=== PATIENT | male | born 1955 | race Caucasian/White ===

== ENCOUNTER 2020-09-08 16:20 | Outpatient (CLI) | payer OTHER, SELFPAY ==
[2020-09-08 17:28] LABS: SARS-CoV-2 Ag Negative (Negative)
[2020-09-10 17:28] LABS: SARS-CoV-2 RNA PCR Negative
== END 2020-09-08 16:21 | disposition home or self-care (01) ==
LOC: CHSLAB 16:43
PROVIDERS: PCP Internal Medicine; Visit Provider Internal Medicine
DX: Z20.822 Contact with and (suspected) exposure to COVID-19 (principal)
CPT/HCPCS: 87426; C9803; U0003; U0005

== ENCOUNTER 2021-07-22 13:14 | Outpatient (CLI) | payer OTHER, SELFPAY ==
--- NOTE | ~2021-07-22 | XR_ITS ---
EXAMINATION: XR sacrum coccyx min 2V DATE: 07/22/2021 14:12 INDICATION: Sacrococcygeal pain. TECHNIQUE: 3 views of the sacrum and coccyx were obtained. COMPARISON: None. FINDINGS: Bone alignment is normal. No fracture. There is severe lumbar spondylosis. There is mild os teoarthritis of the sacroiliac joints. IMPRESSION: 1. Mild osteoarthritis of the sacroiliac joints. 2. Severe lumbar spondylosis. Reviewed, dictated and finalized at location A. RANCE COUNSEL
--- NOTE | ~2021-07-22 | XR_ITS ---
EXAMINATION: XR lumbar spine 2-3V DATE: 07/22/2021 14:10 INDICATION: Low back pain. TECHNIQUE: 3 views of lumbar spine were obtained. COMPARISON: None. FINDINGS: There is 9 degrees dextrocurvature of thoracolumbar spine. Vertebral body heights are olga l. There is mildly decreased disc height at L1-L2, moderately decreased disc height at L2-L3, and sev erely decreased disc height from L3-L4 through L5-S1 with endplate remodeling. There is multilevel fa cet joint osteoarthritis. IMPRESSION: 1. Severe lumbar spondylosis. Reviewed, dictated and finalized at location A. ORK CONTROL OPERATORS SUPERVISOR
--- NOTE | ~2021-07-22 | XR_ITS ---
EXAMINATION: XR hand LT min 3V, XR hand RT min 3V, XR wrist RT min 3V, XR wrist LT min 3V DATE: 07/22/2021 14: INDICATION: Radial side predominant bilateral hand and wrist pain. Polyarthritis. TECHNIQUE: 1. Posteroanterior, ulnar deviation, oblique, and lateral views of the left wrist were obtained. 2. Dorsal palmar, oblique and lateral views of the left hand were obtained. 3. Posteroanterior, ulnar deviation, oblique, and lateral views of the right wrist were obtained. 4. Dorsal palmar, oblique and lateral views of the right hand were obtained. COMPARISON: None. FINDINGS: Normal alignment of the bilateral hands and wrists. No fracture identified. Relatively symmetric darryl yarticular osteoarthritis at the bilateral hands and wrists, moderate severity at the right distal ra dioulnar joint and at several of the bilateral distal interphalangeal joints and mild at the left dis nicky radioulnar joint and at the bilateral triscaphe, first carpometacarpal and multiple metacarpophal angeal and remaining interphalangeal joints. No erosions to suggest an inflammatory arthritis. Mild p eriarticular soft tissue swelling at multiple interphalangeal joints. IMPRESSION: 1. Relatively symmetric in typical distribution of mild to moderate polyarticular osteoarthritis at t he bilateral hands and wrists. Reviewed, dictated and finalized at location A. GE BUFFER IMPRESSION: 1. Relatively symmetric in typical distribution of mild to moderate polyarticul ar osteoarthritis at the bilateral hands and wrists. IMPRESSION: 1. Relatively symmetric in typical distribution of mild to moderate polyarticul ar osteoarthritis at the bilateral hands and wrists. IMPRESSION: 1. Relatively symmetric in typical distribution of mild to moderate polyarticul ar osteoarthritis at the bilateral hands and wrists.
[2021-07-22 13:28] LABS: Hematocrit 48.4 % (37.0-46.0); Hemoglobin 15.9 g/dL (12.4-15.3); Mean Corpuscular HGB Conc 32.9 g/dL (32.0-36.0); Mean Corpuscular Hemoglobin 31.1 pg (27.0-31.0); Mean Corpuscular Volume 94.5 fL (78.0-102.0); Mean Platelet Volume 10.1 fl (8.7-11.0); Platelet Count Result 194 K/mm3 (150-420); Red Blood Count 5.12 M/mm3 (4.70-6.10); Red Cell Distribution Width 11.9 % (11.6-14.4); White Blood Count 3.3 K/mm3 (4.8-10.8)
[2021-07-22 14:04] LABS: Band Neutrophils Percent 0 % (0-6); Eosinophils Absolute Manual 0.03 K/mm3 (0.02-0.5); Eosinophils Percent Manual 1 % (1-6); Lymphocytes Absolute Manual 1.15 K/mm3 (1.1-4.5); Lymphocytes Percent Manual 35 % (18-44); Monocytes Absolute Manual 0.39 K/mm3 (0.1-0.90); Monocytes Percent Manual 12 % (3-9); Neutrophils Absolute Manual 1.71 K/mm3 (1.3-6.7); Neutrophils Percent Manual 52 % (46-73); Platelet Estimate Adequate (Adequate); Total Cells Counted 100
[2021-07-22 14:06] LABS: Alanine Aminotransferase 32 U/L (16-63); Albumin Level 3.6 g/dL (3.4-5.0); Alkaline Phosphatase 76 U/L (46-116); Anion Gap 8 mmol/L (8-16); Aspartate Amino Transferase 19 U/L (15-37); Bilirubin,Total 0.7 mg/dL (0.00-1.00); Blood Urea Nitrogen 19 mg/dL (7-18); Calcium 9.1 mg/dL (8.5-10.1); Carbon Dioxide 30 mmol/L (21-32); Chloride 103 mmol/L (98-108); Cholesterol 253 mg/dL (0-200); Estimated Glomerular Filt Rate > 60; Glucose 92 mg/dL (70-99); HDL Direct 115 mg/dL (40-60); LDL Cholesterol Calculated 121 mg/dL (<130); Osmolality Calculated 294 mOsm/kg (285-295); Potassium 4.7 mmol/L (3.5-5.1); Sodium 141 mmol/L (136-145); Thyroid Stimulating Hormone 1.29 uIU/mL (0.36-3.74); Total Protein 7.2 g/dL (6.4-8.2); Triglycerides 85 mg/dL (0-150); Uric Acid 4.6 mg/dL (3.5-7.2)
[2021-07-22 14:07] LABS: CRP < 0.2 mg/dL (0.0-0.9)
[2021-07-22 14:16] LABS: Add Urine Microscopic? NO; Appearance Urine Clear (Clear); Bilirubin Urine Negative (Negative); Blood Urine Negative (Negative); Color Urine Light Yellow (Yellow); Glucose Urine UA Negative (Negative); Ketones Urine Negative (Negative); Leukocyte Esterase Ur Negative (Negative); Nitrate Urine Negative (Negative); Protein Urine Negative (Negative); Specific Grav Ur 1.025 (1.010-1.020); Urobilinogen Urine 0.2 mg/dL (0.2-1.0)
== END 2021-07-22 13:15 | disposition home or self-care (01) ==
LOC: CHSLAB 13:16
PROVIDERS: PCP Internal Medicine; Visit Provider Internal Medicine
DX: I42.9 Cardiomyopathy, unspecified (principal); M54.50 Low back pain, unspecified; M13.0 Polyarthritis, unspecified; R56.9 Unspecified convulsions; Z00.00 Encounter for general adult medical examination without abnormal findings
CPT/HCPCS: 36415; 72100; 72220; 73110; 73130; 80053; 80061; 81003; 84443; 84550; 85025; 86140

== ENCOUNTER 2022-01-13 09:59 | Outpatient (CLI) | payer OTHER, SELFPAY ==
--- NOTE | ~2022-01-13 | US_ITS ---
US abdomen complete EXAMINATION: US Abdomen Complete INDICATION: Leukopenia. PROCEDURE: Realtime High Resolution abdomen ultrasound. COMPARISON: No prior studies for comparison FINDINGS: Gallbladder within normal limits. No gallstones, pericholecystic fluid, gallbladder wall t hickening or biliary dilatation. Common bile duct measures 4.5 mm. Liver echotexture is normal. There are multiple cysts of the liver, largest measuring 2.9 x 1.6 x 1.8 cm. Liver appears to be enlarged.. Pancreatic duct is mildly prominent. No focal pancreatic masses a re seen. Pancreatic tail is obscured by bowel gas. Spleen is unremarkeable. Renal echotexture is wit hin normal limits bilaterally without hydronephrosis, contour deforming mass or renal stone. There is a right renal cyst measuring 3.1 cm. Right kidney measures 11.7 cm. Left kidney measures 11.5 cm. Visualized aspects of the aorta and IVC are within normal limits. Portal vein is patent. No sonograph ic Rosa's sign indicated by the technologist. IMPRESSION: 1: Liver and right renal cysts. 2: Mild prominence of the pancreatic duct measuring 1.3 mm. Reviewed, dictated and finalized at location A.
== END 2022-01-13 10:00 | disposition home or self-care (01) ==
PROVIDERS: PCP Internal Medicine; Visit Provider Internal Medicine Hematology & Oncology
DX: D72.819 Decreased white blood cell count, unspecified (principal); N28.1 Cyst of kidney, acquired
CPT/HCPCS: 76700

== ENCOUNTER 2022-03-01 08:04 | Outpatient (RCR) | payer OTHER, SELFPAY ==
--- NOTE | 2022-03-01 09:00 | PTOPEVAL ---
Thank you for referring Alexey Russell to [facility].? The patient is scheduled to be seen for therapy? ____x/week for ___ weeks. Please review, sign, date and return this plan of care LINNEA. I agree with and certify that the following plan of care is medically necessary. Referring Physician Date Admitting Provider: Attending Provider: Savage Fonseca MD Referring Provider: *PT Outpatient Evaluation Start: 03/01/22 08:07 Freq: Status: Active Protocol: Document 03/01/22 08:08 STEFFI (Rec: 03/01/22 08:59 STEFFI [email or web address]) Therapy Assessment Status Assessment Status Assessment Status Evaluation Evaluation Information Problem Diagnosis R shoulder pain Onset 02/19/22 Additional Evaluation Detail quick dash = 43% functionally declined Subjective Information patient reports he is having Query Text:As Reported By Patient/ increased pain in the R Family shoulder again. he reports he recently had a cortisone injection about 2 weeks ago. he reports has increased pain in the R shoulder with working with things away from his body. he reports he was unable to reach across his body to reach the back of his opposite shoulder. he reports he also shi increased pain with trying to lift or hold objects out to his side. he reports it feels like a arm but it doesnt go away. he reports tingling in the arm at times when he falls asleep, but will go away with reaching his arm out to his side with his palm facing upwards. he reports he has had no new imaging. patient reports he is much better since his injection. Prior Level of Function Comments Additional Prior Level of Function patient reports he has been Comments getting progressively worse for the past 2 months. he reports no change or increase in activity. he reports prior to 2 months ago he was more easily able to use his arms to work in the yard. Pain Assessment Timing of Pain Assessment Timing of Pain Assess
--- NOTE | 2022-03-09 10:17 | PCPTNOTE ---
03/09/22 - Documented accidently under Marija Marcial. Treatment and documentation performed by Meghan Dimas PTA
--- NOTE | 2022-04-02 08:55 | PTOPEVAL ---
Thank you for referring Alexey Russell to [facility].? The patient is scheduled to be seen for therapy? ____x/week for ___ weeks. Please review, sign, date and return this plan of care LINNEA. I agree with and certify that the following plan of care is medically necessary. Referring Physician Date Admitting Provider: Attending Provider: Savage Fonseca MD Referring Provider: *PT Outpatient Evaluation Start: 03/01/22 08:07 Freq: Status: Active Protocol: Document 03/25/22 08:30 [facility] (Rec: 04/01/22 20:32 J filej) Therapy Assessment Status Assessment Status Assessment Status Re-evaluation Evaluation Information Problem Diagnosis R shoulder pain Onset 02/19/22 Additional Evaluation Detail quick dash = 40% functionally declined Subjective Information patient reports he continues Query Text:As Reported By Patient/ to have pain and weakness in Family the R shoulder. he reports he knows there is a tear in there and has been for years, but he was hoping to get some relief of pain and improved use of the arm like he has with therapy in the past. patient reports the hadn/arm contnues to go numb when he sleeps. Pain Assessment Timing of Pain Assessment Timing of Pain Assessment Assessment Pain Scale Pain Scale Used Numeric (1 - 10) Self Report Pain Assessment Right Shoulder(s) Reported Pain Level 6 Pain Score Pain Score 6: Self Report Interventions Used Interventions Used By Clinicians Activity or ADL's,Electrical Stimulation,Exercise,Heat, Manual Therapy Techniques Upper Extremity Range of Motion General Upper Extremity Range of Motion Gross Upper Extremity Range of Motion 155 degrees arom bilateral Comments shoulder flexion -functional bilateral shoulder ER reach to the lower cervical spine/collar midline -functional bilateral shoulder IR reach tot he uppper lumbar spine midline Upper Extremity Muscle Strength Testing General Upper Extremity Strength Gross Upper Extremity Strength Comments 4/5 R shoulder flex 4+/5 R shoulder ER 5/5 R shoulder IR -pain in the R shoulder with flexion and abduction mm
--- NOTE | 2022-04-15 10:08 | PTOPEVAL ---
Thank you for referring Alexey Russell to [facility].? The patient is scheduled to be seen for therapy? ____x/week for ___ weeks. Please review, sign, date and return this plan of care LINNEA. I agree with and certify that the following plan of care is medically necessary. Referring Physician Date Admitting Provider: Attending Provider: Savage Fonseca MD Referring Provider: *PT Outpatient Evaluation Start: 03/01/22 08:07 Freq: Status: Active Protocol: Document 04/15/22 09:30 [facility] (Rec: 04/15/22 10:08 [facility] [email or web address]) Therapy Assessment Status Assessment Status Assessment Status Discharge Evaluation Information Problem Diagnosis R shoulder pain Onset 02/19/22 Additional Evaluation Detail quick dash = 34% functionally declined Subjective Information patient reports since his Query Text:As Reported By Patient/ initial evaluation and last re Family -evaluation he has improved a lot. however, he reports he still has increased pain with pronlonged activities and increased lifting activities. he reports he will do well for a few days and then have a flare up from being too active at home. he reports the dry needling did help a lot for him. Pain Assessment Timing of Pain Assessment Timing of Pain Assessment Assessment Pain Scale Pain Scale Used Numeric (1 - 10) Self Report Pain Assessment Right Shoulder(s) Reported Pain Level 1 Greatest Pain Intensity 3 Pain Score Pain Score 1: Self Report Interventions Used Interventions Used By Clinicians Activity or ADL's,Dry Needling ,Education,Electrical Stimulation,Exercise,Heat, Manual Therapy Techniques Upper Extremity Range of Motion General Upper Extremity Range of Motion Gross Upper Extremity Range of Motion 155 degrees arom bilateral Comments shoulder flexion -functional bilateral shoulder ER reach to the lower cervical spine/collar midline -functional bilateral shoulder IR reach tot he uppper lumbar spine midline Upper Extremity Muscle Strength Testing General Upper Extremity Strength Gross Upper Extremity Strength Comments 4/5 R shoulder flex/abd 4+/5 R shoulder ER
== END 2022-04-15 14:15 | disposition home or self-care (01) ==
LOC: CHSPT 08:04
PROVIDERS: PCP Internal Medicine; Visit Provider Internal Medicine
DX: M25.511 Pain in right shoulder (principal)
CPT/HCPCS: 97014; 97110; 97140; 97161; G0283

== ENCOUNTER 2022-04-05 19:57 | Outpatient (CLI) | payer OTHER, SELFPAY ==
--- NOTE | 2022-04-21 07:37 | WPDSLEEPSTUD ---
Sleep Study Date of Study: 04/05/22 Ordering Provider: Mikaela Barakat MD Interpreting Physician: Mikaela Barakat MD Sleep Study Type: Split Polysomnogram Height: 1.78 m Weight: 68.492 kg Body Mass Index: 21.7 Neck Circumference (inches): 19 [place]: 11 Reason for Sleep Study Hypersomnia Sleep History Alexey Russell is a 66-year-old man with complaints of excessive daytime sleepiness. He has a history of sleep apnea and has used CPAP in the past. He does not awaken from sleep feeling short of breath were with heartburn symptoms, belching or coughing he occasionally snores but never loudly enough that others complain about it. He rarely has trouble sleeping with a cold. He rarely wakes up gasping for breath at night. He does not sweat excessively at night or notice his heart pounding or beating irregularly. He does not fall asleep during the day, does not fall asleep involuntarily or while driving. He does not have loss of muscle tone with strong emotion. He does not have daytime difficulties due to excessive sleepiness. He does not feel paralyzed on waking or falling asleep. He does not have vivid dreamlike scenes upon awakening or falling asleep. He does not feel afraid to go to sleep. He occasionally has nightmares, occasionally remembers his dreams. He occasionally has racing thoughts and feelings of sadness or depression. He does not have anxiety. He does not have muscular tension, does not notice part of his body jerking and does not kick at night. He does not have crawling or aching feelings in his legs. He does not have any kind of leg pain at night. He does not have morning jaw pain. He occasionally grinds his teeth during sleep. He is not bothered by pain during the day or awakened by pain at night. He rarely wakes up feeling stiff the morning with sore achy muscles or pain in the neck and spine. He has headaches and fatigue. Normal bedtime is 10 pm, falling asleep quickly, waking twice at night to go the bathroom. He is able to return to sleep quickly. He wakes up at 9:00 a.m.. Weekend schedule is different, goes to bed at 10:30 a.m. but wakes around 11:00 a.m.. He is getting between 7-10 hours of sleep at night. He does not generally take naps. Sometimes a short nap is refreshing. Habits: Tobacco: former smoker 2 packs a day,stopped 2003. Caffeine 2 cups a day. [facility] Past Medical History Medical History (Updated 04/21/22 @ 09:10 by Mikaela Barakat MD) Hyperlipidemia Hypertension Obstructive sleep apnea Family History Family History (Updated 03/26/22 @ 14:36 by Mikaela Barakat MD) Mother Diabetes mellitus Family history of cardiovascular disease Family history of malignant neoplasm Hypertension Father Carcinoma of colon Family history of malignant neoplasm Sibling Family history of malignant neoplasm Social History Social History (Updated 03/26/22 @ 14:37 by Mikaela Barakat MD) Smoking packs per day: 1.5 Smoking cigarettes per day: 30.0 Years smoked: 24 Smoking pack-years: 36.00 Smoking status: Former smoker Smoking end date: 08/22/03 Alcohol intake: current Drinks per week: 7 Alcohol use details: One beer or a Gabby daily 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 [employer] Medications Home Medications Medication Instructions Recorded Confirmed Type celecoxib 200 mg capsule (Celebrex) 200 mg PO DAILY 03/04/22 History levetiracetam 250 mg tablet 250 mg PO Q12H 03/04/22 History losartan 25 mg tablet 25 mg PO DAILY 03/04/22 History rosuvastatin 5 mg tablet 5 mg PO DAILY 03/04/22 History Sleep Procedure This test was performed using the [employer] multiple channel system including EOG, EEG, submental EMG, EKG, nasal and oral airflow using thermistors and nasal pressure sensors, chest and abdominal belts for body position data, and pulse oximetry. Video monitoring was also performed. The study was scored using
[2022-04-21 09:33] VITALS: BMI 21.7
== END 2022-04-06 07:00 | disposition home or self-care (01) ==
PROVIDERS: PCP Internal Medicine; Visit Provider Internal Medicine Critical Care Medicine
DX: G47.19 Other hypersomnia (principal)
CPT/HCPCS: 95811

== ENCOUNTER 2022-07-31 08:49 | Outpatient (CLI) | payer OTHER, SELFPAY ==
--- NOTE | ~2022-07-31 | MR_ITS ---
EXAMINATION: MR shoulder LT wo con DATE: 07/31/2022 10:03 INDICATION: PAIN . TECHNIQUE: Magnetic resonance imaging (MRI) of the left shoulder was performed without intravenous co ntrast. Sequences included axial PD-weighted FS FSE, coronal oblique PD-weighted FS FSE and T2-weight ed FS FSE, and sagittal oblique T2-weighted FS FSE and T1-weighted FSE. COMPARISON: Left shoulder x-rays 05/31/2019. FINDINGS: Coracoacromial arch: Mild anterolateral downsloping of the type II acromion. Moderate AC joint hypertrophy. Significant nelson bcoracoid narrowing. Rotator cuff: Full-thickness tear of the distal supraspinatus tendon. Focal abnormal signal at the musculotendinous junction of the infraspinatus. Complete tear of the subscapularis with retraction. The teres minor i s intact. Biceps tendon and glenoid labrum: Long head of biceps tendon is mildly subluxed and thinned but intact. Degenerative signal change in t he diminutive appearing glenoid labrum Fluid: Mild subacromial subdeltoid fluid. Moderate glenohumeral joint fluid. Bones/cartilage: Glenohumeral joint narrowing. No suspicious marrow signal. IMPRESSION: 1. Full-thickness tears of the supraspinatus and subscapularis muscles. 2. Intrasubstance type tear of the infraspinatus muscle. 3. Severe subcoracoid narrowing. 4. Glenohumeral osteoarthritis. Reviewed, dictated and finalized at location K. E FORMER
== END 2022-07-31 08:50 | disposition home or self-care (01) ==
LOC: CHSIMG 08:50
PROVIDERS: PCP Internal Medicine; Visit Provider Internal Medicine
DX: M25.512 Pain in left shoulder (principal)
CPT/HCPCS: 73221

== ENCOUNTER 2022-09-13 11:13 | Outpatient (CLI) | payer OTHER, SELFPAY ==
--- NOTE | 2022-09-13 11:39 | ECG_ITS ---
Measurements Intervals [place] Rate: 59 P: -24 SC: 176 QRS: 42 QRSD: 92 T: 47 QT: 381 QTc: 379 Interpretive Statements SINUS BRADYCARDIA VOLTAGE CRITERIA FOR LVH MINIMAL Q WAVES- LATEARL LEADS BASELINE ARTIFACT- II, III BORDERLINE ECG NO PREVIOUS ECG AVAILABLE FOR COMPARISON Electronically Signed On 09-13-2022 11:50:52 MITER CUTTER by Kenan Carvalho D.O.
[2022-09-13 12:22] LABS: Anion Gap 9 mmol/L (8-16); Blood Urea Nitrogen 18 mg/dL (7-18); Calcium 8.7 mg/dL (8.5-10.1); Carbon Dioxide 27 mmol/L (21-32); Chloride 102 mmol/L (98-108); Estimated Glomerular Filt Rate > 60; Glucose 95 mg/dL (70-99); Osmolality Calculated 287 mOsm/kg (285-295); Potassium 4.4 mmol/L (3.5-5.1); Sodium 138 mmol/L (136-145)
== END 2022-09-13 11:14 | disposition home or self-care (01) ==
LOC: CHSLAB 11:18
PROVIDERS: PCP Internal Medicine
DX: Z01.818 Encounter for other preprocedural examination (principal)
CPT/HCPCS: 36415; 80048; 93005

== ENCOUNTER 2022-12-17 16:49 | Outpatient (CLI) | payer OTHER, SELFPAY ==
[2022-12-17 17:03] LABS: Basophils Absolute Auto 0.06 K/mm3 (0.00-0.10); Basophils Percent Auto 1.3 % (0.0-1.0); Eosinophils Percent Auto 2.2 % (1.0-6.0); Hematocrit 39.7 % (37.0-46.0); Hemoglobin 13.1 g/dL (12.4-15.3); Immature Granulocyte Absolute 0.01 K/mm3 (0.00-0.00); Immature Granulocyte Percent A 0.2 % (0.0-0.0); Lymphocytes Absolute Auto 1.53 K/mm3 (1.10-4.50); Lymphocytes Percent Auto 33.4 % (18.0-42.0); Mean Corpuscular Hemoglobin 30.3 pg (27.0-31.0); Mean Corpuscular Volume 91.7 fL (78.0-102.0); Mean Platelet Volume 10.1 fl (8.7-11.0); Monocytes Absolute Auto 0.41 K/mm3 (0.10-0.90); Neutrophils Absolute Auto 2.5 K/mm3 (1.7-7.2); Neutrophils Percent Auto 53.9 % (50.0-70.0); Platelet Count Result 202 K/mm3 (150-420); Red Blood Count 4.33 M/mm3 (4.70-6.10); Red Cell Distribution Width 12.8 % (11.6-14.4); White Blood Count 4.6 K/mm3 (4.8-10.8)
== END 2022-12-17 16:50 | disposition home or self-care (01) ==
LOC: CHSLAB 16:50
PROVIDERS: PCP Internal Medicine; Visit Provider Internal Medicine Hematology & Oncology
DX: D72.819 Decreased white blood cell count, unspecified (principal)
CPT/HCPCS: 36415; 85025

== ENCOUNTER 2023-02-09 07:08 | Outpatient (CLI) | payer OTHER, SELFPAY ==
[2023-02-09 07:21] LABS: Hematocrit 41.3 % (37.0-46.0); Hemoglobin 13.4 g/dL (12.4-15.3); Mean Corpuscular HGB Conc 32.4 g/dL (32.0-36.0); Mean Corpuscular Hemoglobin 29.8 pg (27.0-31.0); Mean Corpuscular Volume 91.8 fL (78.0-102.0); Mean Platelet Volume 10.5 fl (8.7-11.0); Platelet Count Result 200 K/mm3 (150-420); Red Cell Distribution Width 12.3 % (11.6-14.4); White Blood Count 3.1 K/mm3 (4.8-10.8)
[2023-02-09 08:29] LABS: Band Neutrophils Percent 0 % (0-6); Eosinophils Absolute Manual 0.12 K/mm3 (0.02-0.5); Eosinophils Percent Manual 4 % (1-6); Lymphocytes Absolute Manual 1.64 K/mm3 (1.1-4.5); Lymphocytes Percent Manual 53 % (18-44); Monocytes Absolute Manual 0.34 K/mm3 (0.1-0.90); Monocytes Percent Manual 11 % (3-9); Neutrophils Absolute Manual 0.99 K/mm3 (1.3-6.7); Neutrophils Percent Manual 32 % (46-73); Platelet Estimate Adequate (Adequate); Total Cells Counted 100
[2023-02-09 09:01] LABS: Alanine Aminotransferase 32 U/L (16-63); Albumin Level 3.5 g/dL (3.4-5.0); Alkaline Phosphatase 76 U/L (46-116); Anion Gap 6 mmol/L (8-16); Aspartate Amino Transferase 24 U/L (15-37); Bilirubin,Total 0.3 mg/dL (0.00-1.00); Blood Urea Nitrogen 21 mg/dL (7-18); Calcium 9.1 mg/dL (8.5-10.1); Carbon Dioxide 28 mmol/L (21-32); Chloride 104 mmol/L (98-108); Cholesterol 175 mg/dL (0-200); Estimated Glomerular Filt Rate > 60; Glucose 85 mg/dL (70-99); HDL Direct 74 mg/dL (40-60); LDL Cholesterol Calculated 76 mg/dL (<130); Osmolality Calculated 288 mOsm/kg (285-295); Potassium 4.6 mmol/L (3.5-5.1); Prostate Specific Antigen 1.7 ng/mL (< OR = 4.0); Sodium 138 mmol/L (136-145); Thyroid Stimulating Hormone 2.55 uIU/mL (0.36-3.74); Total Protein 6.7 g/dL (6.4-8.2); Triglycerides 123 mg/dL (0-150)
[2023-02-09 11:21] LABS: Appearance Urine Clear (Clear); Bilirubin Urine 1+ (Negative); Blood Urine Negative (Negative); Glucose Urine UA Negative (Negative); Ketones Urine Negative (Negative); Leukocyte Esterase Ur Negative (Negative); Nitrate Urine Negative (Negative); Protein Urine Trace (Negative); Specific Grav Ur 1.025 (1.010-1.020); pH Urine 6.5 (5.0-8.0)
[2023-02-09 11:30] LABS: Color Urine Dark Yellow (Yellow)
[2023-02-09 11:31] LABS: Add Urine Microscopic? YES; Bacteria Urine Trace /hpf; Mucus Urine Moderate /lpf; RBC Urine None seen /hpf (0-2); Squamous Epithelial Cell Urine Rare /hpf (Few); WBC Urine None seen /hpf (0-3)
== END 2023-02-09 07:09 | disposition home or self-care (01) ==
LOC: CHSLAB 07:10
PROVIDERS: PCP Internal Medicine; Visit Provider Internal Medicine
DX: I10 Essential (primary) hypertension (principal); E78.00 Pure hypercholesterolemia, unspecified; Z12.5 Encounter for screening for malignant neoplasm of prostate
CPT/HCPCS: 36415; 80053; 80061; 81001; 84153; 84443; 85025; G0103

== ENCOUNTER 2023-02-09 10:04 | Outpatient (RCR) | payer OTHER, SELFPAY ==
--- NOTE | 2023-02-16 11:16 | OPREHPOC ---
Outpatient Therapy Plan of Care This is a Multidisciplinary Plan of Care that may contain components documented by all disciplines (PT, OT, and ST.) PT Problem 1 PT Problem #1 Knowledge Deficit PT Goal 1 Goal Patient to demonstrate independence with HEP Target Visit 4 PT Problem 2 PT Problem #2 Impaired Strength PT Goal 1 Goal Patient to demonstrate 5/5 strength of L shoulder to return to lifting pots and pans at PLOF. Target Visit 4 PT Problem 3 PT Problem #3 Impaired Range of Motion PT Goal 1 Goal Patient to demonstrate 160 degrees of L shoulder flexion to return to house hold tasks at OF.
--- NOTE | 2023-02-16 11:16 | PTOPREEVAL ---
Assessment and note entered by Mikaela Hanna DPT Evaluation Information Assessment Status Re-evaluation Diagnosis L shoulder pain s/p RTC repair Onset 09/15/22 Subjective Information Patient reports his range of motion has improved and has improved his house hold activity. He reports he has been trying to good and lifting a pain and turning his hand in towards his body is difficult. He reports he RTMD in mid February. Reported Pain Level Pain Score 2: Self Report Assessment PT Clinical Summary Patient has been seen for 8 visits since his last re-assessment. He demonstrates improved L shoulder strength and ROM as well as reports improved house hold function. He reports continued difficulty with lifting pots and pans for cooking. He would benefit from continued skilled PT 1x weekly to improve strength and return to PLOF. Plan of Care Interventions Therapeutic Exercise,Patient/Caregiver Educati, Manual Therapy,Neuro Re-education,Therapeutic Activities,Hot Pack/Cold Pack,Self-Care/Home Management PT Services Indicated Yes Treatment Frequency and continue skilled PT 1x weekly for 4 more visits Duration These treatments will address the objective and functional deficits as defined above. The patient will be advanced safely and appropriately in order for the patient to progress towards his/her prior level of function. Additional exercises will be introduced and as well as a comprehensive home exercise program upon discharge, if needed, ?to ensure carryover of functional gains achieved in the clinic. This treatment plan has been reviewed and agreement upon by the patient.
--- NOTE | 2023-03-23 13:32 | OPREHPOC ---
Outpatient Therapy Plan of Care This is a Multidisciplinary Plan of Care that may contain components documented by all disciplines (PT, OT, and ST.) PT Problem 1 PT Problem #1 Knowledge Deficit PT Goal 1 Goal Patient to demonstrate independence with HEP Target Visit 4 Progress Met PT Problem 2 PT Problem #2 Impaired Strength PT Goal 1 Goal Patient to demonstrate 5/5 strength of L shoulder to return to lifting pots and pans at PLOF. Target Visit 4 Progress Partially Met PT Problem 3 PT Problem #3 Impaired Range of Motion PT Goal 1 Goal Patient to demonstrate 160 degrees of L shoulder flexion to return to house hold tasks at PLOF. Progress Partially Met Comment goal met with PROM, not met with AROM
--- NOTE | 2023-03-23 13:32 | PTOPDC ---
Assessment and note entered by JT File, PT Evaluation Information Assessment Status Re-evaluation Diagnosis L shoulder pain s/p RTC repair Onset 09/15/22 Subjective Information Patient reports no pain in the L shoulder at the beginning of today's session, but does state that it feels aggravated. Patient noted he visited the doctor about two weeks ago. The patient notes the doctor said he could return to work as long as he stopped activities once pain started to increase, however he is nervous about returning to work as he is unable to stop in the middle of performing actions at work. Patient reports that his pain levels have decreased since starting physical therapy, however he still notices weakness in the shoulder, especially with continued activity or lifting heavier objects. He also notes a significant increase in ROM and function from physical therapy. Reported Pain Level Pain Score 0: Self Report Assessment PT Clinical Summary Mr. Russell has attended 39 sessions of skilled PT to address L shoudler pain s/p RTC repair. He has demonstrated improved UE strength and ROM since intitial assessment, as well as functional use of the arm with household activities. According to Quick DASH assessment, he has 29.5% functional decline showing functional improvement since previous assessments. Patient reports a decrease in pain levels with getting dressed, reaching overhead, and sleeping. At this point in time, patient is to be discharged with independent HEP addressing remaining L shoulder strengthening and ROM limitations. Plan of Care PT Services Indicated Yes
== END 2023-03-23 15:24 | disposition home or self-care (01) ==
LOC: CHSPT 10:04
PROVIDERS: PCP Internal Medicine; Visit Provider Orthopaedic Surgery Hand Surgery
DX: M75.102 Unspecified rotator cuff tear or rupture of left shoulder, not specified as traumatic (principal); M25.512 Pain in left shoulder
CPT/HCPCS: 97110; 97140; 97150; 97530

== ENCOUNTER 2023-06-21 08:04 | Outpatient (CLI) | payer OTHER, SELFPAY ==
[2023-06-21 08:15] LABS: Hematocrit 41.8 % (37.0-46.0); Hemoglobin 14.1 g/dL (12.4-15.3); Mean Corpuscular HGB Conc 33.7 g/dL (32.0-36.0); Mean Corpuscular Hemoglobin 31.7 pg (27.0-31.0); Mean Corpuscular Volume 93.9 fL (78.0-102.0); Platelet Count Result 212 K/mm3 (150-420); Red Blood Count 4.45 M/mm3 (4.70-6.10); Red Cell Distribution Width 12.3 % (11.6-14.4); White Blood Count 3.3 K/mm3 (4.8-10.8)
[2023-06-21 08:26] LABS: Band Neutrophils Percent 0 % (0-6); Basophils Percent Manual 0 % (0-1); Eosinophils Absolute Manual 0.06 K/mm3 (0.02-0.5); Eosinophils Percent Manual 2 % (1-6); Lymphocytes Absolute Manual 1.35 K/mm3 (1.1-4.5); Lymphocytes Percent Manual 41 % (18-44); Metamyelocytes Percent 0 %; Monocytes Absolute Manual 0.46 K/mm3 (0.1-0.90); Monocytes Percent Manual 14 % (3-9); Myelocytes Percent 0 %; Neutrophils Absolute Manual 1.41 K/mm3 (1.3-6.7); Neutrophils Percent Manual 43 % (46-73); Platelet Estimate Adequate (Adequate); Total Cells Counted 100
[2023-06-21 09:18] LABS: Anion Gap 8 mmol/L (8-16); Blood Urea Nitrogen 15 mg/dL (7-18); Calcium 9.4 mg/dL (8.5-10.1); Carbon Dioxide 29 mmol/L (21-32); Chloride 102 mmol/L (98-108); Estimated Glomerular Filt Rate > 60; Folic Acid 6.6 ng/mL (8.6->20); Glucose 93 mg/dL (70-99); Osmolality Calculated 288 mOsm/kg (285-295); Potassium 4.6 mmol/L (3.5-5.1); Sodium 139 mmol/L (136-145); Vitamin B12 883 pg/mL (193-986)
== END 2023-06-21 08:05 | disposition home or self-care (01) ==
LOC: CHSLAB 08:06
PROVIDERS: PCP Internal Medicine; Visit Provider Internal Medicine Hematology & Oncology
DX: D72.819 Decreased white blood cell count, unspecified (principal)
CPT/HCPCS: 36415; 80048; 82607; 82746; 85025

== ENCOUNTER 2024-04-18 10:38 | Outpatient (CLI) | payer OTHER, SELFPAY ==
--- NOTE | ~2024-04-18 | XR_ITS ---
EXAMINATION: XR hand LT min 3V DATE: 04/18/2024 11:21 INDICATION: Left hand arthritis. TECHNIQUE: 3 views of left hand were obtained. COMPARISON: Left hand radiographs 07/22/2021 FINDINGS: Alignment is normal. No fracture. There is mild osteoarthritis of triscaphe joint and moder ate osteoarthritis of first carpometacarpal joint with loose body. There is mild osteoarthritis of [place] of the metacarpophalangeal joints and interphalangeal joints. There is severe osteoarthritis of fi rst interphalangeal joint and second and third distal interphalangeal joints and moderate osteoarthri tis of fourth distal interphalangeal joint. IMPRESSION: 1. Polyarticular osteoarthritis. Reviewed, dictated and finalized at location A.
[2024-04-18 11:01] LABS: Add Urine Microscopic? NO; Appearance Urine Clear (Clear); Bilirubin Urine Negative (Negative); Blood Urine Negative (Negative); Color Urine Yellow (Yellow); Glucose Urine UA Negative (Negative); Ketones Urine Negative (Negative); Leukocyte Esterase Ur Negative (Negative); Nitrate Urine Negative (Negative); Protein Urine Negative (Negative); Specific Grav Ur >= 1.030 (1.010-1.020); Urobilinogen Urine 0.2 mg/dL (0.2-1.0)
[2024-04-18 11:41] LABS: Cholesterol 201 mg/dL (0-200); HDL Direct 110 mg/dL (40-60); LDL Cholesterol Calculated 80 mg/dL (<130); Prostate Specific Antigen 1.8 ng/mL (< OR = 4.0); Thyroid Stimulating Hormone 1.34 uIU/mL (0.36-3.74); Triglycerides 54 mg/dL (0-150); Uric Acid 4.1 mg/dL (3.5-7.2)
[2024-04-18 11:46] LABS: CRP < 0.5 mg/dL (0.0-0.9)
[2024-04-20 07:15] LABS: Levetiracetam Keppra 10.3 mcg/mL (6.0-46.0)
== END 2024-04-18 10:39 | disposition home or self-care (01) ==
PROVIDERS: PCP Internal Medicine; Visit Provider Internal Medicine
DX: E78.5 Hyperlipidemia, unspecified (principal); G40.909 Epilepsy, unspecified, not intractable, without status epilepticus; M19.042 Primary osteoarthritis, left hand
CPT/HCPCS: 36415; 73130; 80061; 80177; 81003; 84153; 84443; 84550; 86140; G0103

== ENCOUNTER 2024-10-01 09:34 | Outpatient (CLI) | payer OTHER, SELFPAY ==
--- OUTSIDE RECORDS SUMMARY | 2024-10-01 10:06 | XMS_ITS | Clinical Summary ---
Author Organization [facility] Address [address] [place] [address] Care Team Providers Care Student Recruiter Name Role Phone Unavailable Primary Care Provider Unavailabl e Social History Tobacco Use Types Packs/Day Years Used Date Smoking Tobacco: Former Sex and Gender Information Value Date Recorded Sex Assigned at Not on file Legal Sex Male 9:33 PM CDT Gender Identity Not on file Sexual Orientation Not on file Last Filed Vital Signs Vital Sign Reading Time Taken Comments Blood Pressure 122/78 07/06/2016 10:30 AM CASE MANAGERS Pulse 74 07/06/2016 10:30 AM CASE MANAGERS Temperature - - Respiratory Rate 18 12/11/2012 11:04 AM CDT Oxygen Saturation - - Inhaled Oxygen Concentration - - Weight 68 kg (150 lb) 01/15/2016 11:19 AM CDT Height 177.8 cm (5' 10 ) 07/06/2016 10:30 AM CASE MANAGERS Body Mass Index 21.52 01/15/2016 11:19 AM CDT Plan of Treatment Health Maintenance Due Date Last Done Comments Colorectal Cancer Screening Colonoscopy (10 Years) 1953 Hepatitis C 1971 DTaP, Tdap and Td Vaccines ( 1 - Tdap) 1972 Zoster Vaccines (1 of 2) 2003 Pneumococcal Vaccine: 65+ Ye ars (1 of 1 - PCV) 2018 COVID-19 Vaccine ( - 2023-2 5 season) 2024 Influenza Adult (#1) 2024 RSV Immunization or 60+ Years (1 - 1-dose 75+ series) 2028 Meningococcal B Vaccine Aged Out No l onger eligible based on patient's age to complete this topic Meningococcal Vaccine Aged Out No john jaswinder eligible based on patient's age to complete this topic RSV Immunizations Under 20 Months Aged Out No longer eligible based on patient's age to complete this topic
--- OUTSIDE RECORDS SUMMARY | 2024-10-01 10:06 | XMS_ITS | Referral Summary ---
Author Organization [facility] [address] Address [address] [place] [address] Care Team Providers Care Foam Machine Operator Name Role Phone Savage Fonseca MD Primary Care Provider [phone] Allergies Active Allergy Reactions Criticality Noted Date Comments Phenytoin Itching Low 07/23/2014 Itching Medications levETIRAcetam (KEPPRA) 250 mg tablet Take 1 tablet (250 mg total) by mouth every 12 (twelve) hours 12/01/2021 Active losartan (COZAAR) 25 mg tablet losartan 25 mg tablet Active albuterol HFA (PROVENTIL HFA,VENTOLIN HFA,PROAIR HFA) 90 mcg/actuation inhaler Inhale 2 puffs every 6 (six) hours as needed for wheezing Active rosuvastatin (CRESTOR) 5 mg tablet Take 1 tablet (5 mg total) by mouth daily Active cyanocobalamin (Vitamin B-12) 1,000 mcg tabletIndicatio ns:Prevention of Vitamin B12 Deficiency Take 1 tablet (1,000 mcg total) by mouth daily Active Active Problems Problem Noted Date Diagnosed Date Hyperlipidemia Cardiomyopathy Essential hypertension Social History Tobacco Use Types Packs/Day Years Used Date Smoking Tobacco: Former Smokeless Tobacco: Never Tobacco Cessation:Counseling Given: Not Answered Personal Safety Answer Date Recorded Getting School Help Needed Not on file 09/24 Sex and Gender Information Value Date Recorded Sex Assigned at Not on file Legal Sex Male 12:41 PM WIPER BLENDER Gender Identity Not on file Sexual Orientation Not on file Last Filed Vital Signs Vital Sign Reading Time Taken Comments Blood Pressure 120/66 01/30/2024 10:10 AM CDT Pulse 52 01/30/2024 10:10 AM CDT Temperature 36.3 C (97.4 F) 07/23/2014 1:54 PM WIPER BLENDER Respiratory Rate - - Oxygen Saturation 98% 01/30/2024 10:10 AM CDT Inhaled Oxygen Concentration - - Weight 71.4 kg (157 lb 5.1 oz) 01/30/2024 10:10 AM CDT Height 177.8 cm (5' 10 ) 01/30/2024 10:10 AM CDT Body Mass Index 22.57 01/30/2024 10:10 AM CDT Plan of Treatment Not on file Insurance [email or web address] [facility] [id number] Care Teams Foam Machine Operator Relationship Specialty Start Date End Date Savage Fonseca MD PCP - General Internal Medicine 11/13/21
--- OUTSIDE RECORDS SUMMARY | 2024-10-01 10:06 | XMS_ITS | Clinical Summary ---
Author Organization [facility] Address [address] [place] [address] Care Team Providers Care Roving Technician Name Role Phone Savage Fonseca MD Primary Care Provider [phone] Allergies Active Allergy Reactions Criticality Noted Date Comments Phenytoin Itching Low 07/23/2014 Itching Medications celecoxib (CeleBREX) 200 mg capsule Take 200 mg by mouth 2 times daily. Active levETIRAcetam (KEPPRA) 250 mg tablet Take 250 mg by mouth every 12 hours. 12/01/2021 Active losartan (COZAAR) 25 mg tablet losartan 25 mg tablet Active rosuvastatin (CRESTOR) 5 mg tablet Take 5 mg by mouth daily. Active cyanocobalamin 1,000 mcg Tablet Take 1,000 mcg by mouth daily. Active Active Problems Problem Noted Date Diagnosed Date Leukopenia 12/31/2021 Encounters Date Type Department Care Team Description 09/18/2024 External Device Data STL ABSTRACTION Provider, Abstract 09/12/2024 External Device Data STL ABSTRACTION Provider, Abstract 09/12/2024 External Device Data STL ABSTRACTION Provider, Abstract 09/05/2024 External Device Data STL ABSTRACTION Provider, Abstract from Last 3 Months Family History Medical History Relation Name Comments Colon Cancer Father Breast Cancer Mother Cancer Mother Brain Cancer Sister 1 Relation Name Status Comments Brother Alive Father Mother Sister 1 Sister 2 Alive Sister 3 Alive Son Alive Social History Tobacco Use Types Packs/Day Years Used Date Smoking Tobacco: Former Cigarettes Smokeless Tobacco: Never Tobacco Cessation:Counseling Given: Not Answered Comments:quit 2004 Alcohol Use Standard Drinks/Week Comments Yes 0 (1 standard drink = 0.6 oz pur e alcohol) Sex and Gender Information Value Date Recorded Sex Assigned at Not on file Legal Sex Male 12:09 PM CDT Gender Identity Not on file Sexual Orientation Not on file Last Filed Vital Signs Vital Sign Reading Time Taken Comments Blood Pressure 136/88 04/02/2024 10:53 AM CDT Pulse 62 04/02/2024 10:53 AM CDT Temperature 36.7 C (98 F) 04/02/2024 10:53 AM CDT Respiratory Rate 16 04/02/2024 10:53 AM CDT Oxygen Saturation 95% 04/02/2024 10:53 AM CDT Inhaled Oxygen Concentration - - Weight 68.9 kg (152 lb) 04/02/2024 10:53 AM CDT Height 177.8 cm (5' 10 ) 05/24/2022 2:09 PM CDT Body Mass Index 21.81 05/24/2022 2:09 PM CDT Plan of Treatment Upcoming Encounters Date Type Department Care Team (Late st Contact Info) Description 10/04/2024 11:30 AM ASSISTANT SIGNAL MAINTAINER Office Visit [facility] Oncology and Hematology [facility] [address] [facility] [address] [place] [address] William Gambino MD [address] [facility] [address] [place] [address] Health Maintenance Due Date Last Done Comments DTAP/TDAP/TD VACCINES (1 - Tdap) 1972 COLORECTAL SCREENING 1998 Colorectal Cancer Screening 1998 FIT-DNA Q 3 years 1998 FIT/FOBT Q 1 year 1998 Flex Sig/CT Colonography Q 5 years 1998 PNEUMOCOCCAL VACCINE 65+ YEARS (1 of 1 - PCV) 06/03/20 03 ZOSTER VACCINE (1 of 2) 2003 Abdominal Aortic Aneurysm (AAA) Screening 2018 INFLUENZA VACCINE (#1) 2024 Preventative Visit- Commercial 08/22/2024 RSV VACCINE (60+ or ) (1 - 1-dose 75+ series) 2028 Insurance [facility] OA Care Teams Roving Technician Relationship Specialty Start Date End Date Savage Fonseca MD [address] [place] [address] PCP - General Internal Medicine 12/31/21
--- OUTSIDE RECORDS SUMMARY | 2024-10-01 10:06 | XMS_ITS ---
Author Organization Unknown Medications Medication Instructions Effective Dates (start - stop) Status levetiracetam 250 MG Oral Tablet 00:00:00Z - Completed losartan potassium 25 MG Ora l Tablet - Completed levetiracetam 250 MG Oral Tablet 00:00:00Z - Completed rosuvastatin calcium 5 MG Or al Tablet - Completed levetiracetam 250 MG Oral Tablet 00:00:00Z - Completed levetiracetam 250 MG Oral Tablet 00:00:00Z - Completed losartan potassium 25 MG Ora l Tablet - Completed - - Compl eted prednisone 20 MG Oral Tablet [id number] 0:00:00Z - Completed rosuvastatin calcium 5 MG Or al Tablet - Completed Patient Care team information Name Category Status Period Participants - - Proposed period not known -
--- OUTSIDE RECORDS SUMMARY | 2024-10-01 10:06 | XMS_ITS | Continuity of Care Document ---
Author Organization [facility] Address [address] [place] [address] [address] [place] [address] Phone Care Team Providers Care Systems Integrator Name Role Phone Adams OD, Andrew Unavailable Unavailable Procedures Procedure Date Office/outpatient Visit, Est Remove Foreign Body From Eye Advance Directives Directive Yes / No Effective Date File Name No Information Encounters Encounter Description Practice Location Reason(s) For Visit Diagnoses Date Provider Providers Copied on Encounter Office/outpat ient Visit, Est [facility], [address] [place] [address] [address], [place], [place], [id number], tel:[phone] [facility] No Information Mar-2 0-200 8 Adams OD Andrew. [address] [facility] [facility] [address] [facility] , [address], [place], [place], [facility], . tel:[phone] [facility], [address] [place] [address] [address], [place], [place], [id number], tel:[phone] [facility] No Information Mar-1 3-200 8 Adams OD Andrew. [address] [facility] [facility] , [address], [place], [address], [place]. tel:[phone] Referring Provider: Savage Fonseca MD, [address] [place], [address]. tel:[phone] Family History Family Member Type Diagnosis Age At Onset No Information Payers Payer name Insurance type Covered constitution party ID Authoriza tiperla(s) [employer] SOI CI [id number] Social History Type Description Quantity Date Captured [...]
--- OUTSIDE RECORDS SUMMARY | 2024-10-01 10:06 | XMS_ITS | Clinical Summary ---
Author Organization [facility] [address] Address [address] [place] [address] Care Team Providers Care Coin Dealer Name Role Phone Savage Fonseca MD Primary Care Provider [phone] Allergies Active Allergy Reactions Criticality Noted Date [...] Date Diagnosed Date Hyperlipidemia Cardiomyopathy Essential hypertension Surgical History Surgery Date Site/Laterality Comments KNEE SURGERY CRANIOTOMY Medical History Medical History Date Comments Cardiomyopathy (HCC) Hyperlipidemia Seizure disorder (CMS/HCC) (HCC) Leukopenia Brain abscess Sleep apnea Family History Medical History Relation Name Comments Cancer Father Cancer Mother Relation Name Status Comments Father Mother Social History Tobacco Use Types Packs/Day Years Used Date Smoking Tobacco: Former Smokeless Tobacco: Never Tobacco Cessation:Counseling Given: Not Answered Personal Safety Answer Date Recorded Getting School Help Needed Not on file 09/24 Sex and Gender Information Value Date Recorded Sex Assigned at Not on file Legal Sex Male 12:41 PM RESIDENTIAL SALES REP Gender Identity Not on file Sexual Orientation Not on file Obstetrics History Last Filed Vital Signs Vital Sign Reading Time Taken Comments Blood Pressure 120/66 01/30/2024 10:10 AM CDT Pulse 52 01/30/2024 10:10 AM CDT Temperature 36.3 C (97.4 F) 07/23/2014 1:54 PM RESIDENTIAL SALES REP Respiratory Rate - - Oxygen Saturation 98% 01/30/2024 10:10 AM CDT Inhaled Oxygen Concentration - - Weight 71.4 kg (157 lb 5.1 oz) 01/30/2024 10:10 AM CDT Height 177.8 cm (5' 10 ) 01/30/2024 10:10 AM CDT Body Mass Index 22.57 01/30/2024 10:10 AM CDT Plan of Treatment Health Maintenance Due Date Last Done Comments Colon Cancer Screening-Colonoscopy 1953 Depression Screening 1953 Fall Risk Assessment 1953 Hepatitis C Screening 1953 Hepatitis B Screening 1971 Abdominal Aortic Aneurysm (A AA) Screen 2018 Well Visit 65+ 2018 Zoster Vaccine (3 of 3) 01/05/2022 11/10/2021, 11/03 Covid-19 Vaccine ( season) 2024 07/06/2021, 10/31/2020, 10/10/2020 Influenza Vaccine (#1) 2024 , 06/11/2019, 05/31/2019 DTaP/Tdap/Td Vaccine (2 - Td or Tdap) 02/19/203108/2020 Pneumococcal vaccine 65+ Completed 06/10/2020, 05/22 Insurance [facility] [address] [place] [id number] Care Teams Coin Dealer Relationship Specialty Start Date End Date Savage Fonseca MD PCP - General Internal Medicine 11/13/21
[2024-10-01 10:20] LABS: Hematocrit 39.5 % (37.0-46.0); Hemoglobin 12.5 g/dL (12.4-15.3); Mean Corpuscular HGB Conc 31.6 g/dL (32-36); Mean Corpuscular Hemoglobin 29.6 pg (27.0-31.0); Mean Corpuscular Volume 93.4 fL (78.0-102.0); Mean Platelet Volume 10.3 fl (8.7-11.0); Platelet Count Result 191 K/mm3 (150-420); Red Blood Count 4.23 M/mm3 (4.70-6.10); Red Cell Distribution Width 12.4 % (11.6-14.4); White Blood Count 2.8 K/mm3 (4.8-10.8)
[2024-10-01 10:55] LABS: Band Neutrophils Percent 38 % (0-6); Basophils Percent Manual 0 % (0-1); Eosinophils Absolute Manual 0.02 K/mm3 (0.02-0.50); Eosinophils Percent Manual 1 % (1-6); Lymphocytes Absolute Manual 0.28 K/mm3 (1.1-4.5); Lymphocytes Percent Manual 10 % (18-44); Monocytes Absolute Manual 0.19 K/mm3 (0.1-0.90); Monocytes Percent Manual 7 % (3-9); Neutrophils Absolute Manual 1.06 K/mm3 (1.3-6.7); Neutrophils Percent Manual 0 % (46-73); Platelet Estimate Adequate (Adequate); Total Cells Counted 44
[2024-10-01 11:41] LABS: Alanine Aminotransferase 26 U/L (16-63); Albumin Level 3.5 g/dL (3.4-5.0); Alkaline Phosphatase 65 U/L (46-116); Anion Gap 7 mmol/L (4-12); Aspartate Amino Transferase 17 U/L (15-37); Bilirubin,Total 0.5 mg/dL (0.00-1.00); Blood Urea Nitrogen 22 mg/dL (7-18); Calcium 8.5 mg/dL (8.5-10.1); Carbon Dioxide 29 mmol/L (21-32); Chloride 104 mmol/L (98-108); Estimated Glomerular Filt Rate > 60; Folic Acid 6.9 ng/mL (8.6->20); Glucose 100 mg/dL (70-99); Osmolality Calculated 293 mOsm/kg (285-295); Potassium 4.3 mmol/L (3.5-5.1); Sodium 140 mmol/L (136-145); Total Protein 6.7 g/dL (6.4-8.2); Vitamin B12 813 pg/mL (193-986)
== END 2024-10-01 09:35 | disposition home or self-care (01) ==
LOC: CHSLAB 09:36
PROVIDERS: PCP Internal Medicine; Visit Provider Internal Medicine Hematology & Oncology
DX: D72.819 Decreased white blood cell count, unspecified (principal)
CPT/HCPCS: 36415; 80053; 82607; 82746; 85025

== ENCOUNTER 2025-04-25 07:56 | Outpatient (CLI) | payer OTHER, SELFPAY ==
--- OUTSIDE RECORDS SUMMARY | 2007-11-09 07:32 | XMS_ITS | Continuity of Care Document ---
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 Name Role Phone Adams OD, Andrew Unavailable Unavailable Procedures Procedure Date Office/outpatient Visit, Est Remove Foreign Body From Eye Advance Directives Directive Yes / No Effective Date File Name No Information Encounters Encounter Description Practice Location Reason(s) For Visit Diagnoses Date Provider Providers Copied on Encounter Office/outpat ient Visit, Est [facility], [address] [place] [address] [address], [place], [place], [id number], tel:[phone] [facility] No Information Mar-2 0-200 8 Adams OD Andrew. [address] , [address], [place], [place], [facility], . tel:[phone] [facility], [address] [place] [address] [address], [place], [place], [id number], tel:[phone] [facility] No Information Mar-1 3-200 8 Adams OD Andrew. [address] , [address], [place], [address], [place]. tel:[phone] Referring Provider: Savage Fonseca MD, [address] [place], [address]. tel:[phone] Family History Family Member Type Diagnosis Age At Onset No Information Payers Payer name Insurance type Covered green party ID Authoriza tiperla(s) [employer] SOI CI [id number] Social History Type Description Quantity Date Captured Comments Sex Male Smoking Status No Information Chief Complaint And Reason For Visit No Information Reason For Referral Reason For Referral No Information History Of Present Illness Encounter Date Complaint History Of Prese nt Illness No Information Functional Status Date Functional Assessmen t No Information Instructions Date Instruction Additional Infor mation No Information Assessments Type Assessment Date No Information Patient Care Teams Name Effective Dates (start - stop) Status Members No Information
--- NOTE | 2025-04-25 | CONSULT_PTH ---
PATIENT: Alexey Russell LOC: [facility]#:[id number] AGE/SX: 69/M ROOM: RE04/25/[address]: Savage Fonseca MD : 1955 BED: DIS: 04/25/2025 SPEC #: [id number] RECD: 04/25/25 08:57 STATUS: [facility] #: [id number] AMINA: 04/25/25 00:[address]: Savage Fonseca DEPT: [facility] Consult RECD BY: Sharla Cavazos MLT, ([facility]) Tissues: A - Peripheral Smear Procedures: Hematology Consult
--- OUTSIDE RECORDS SUMMARY | 2025-04-25 08:05 | XMS_ITS | Clinical Summary ---
Author Organization [facility] Address [address] [place] [address] Care Team Providers Care Salesperson Men'S [employer] Boys[employer] Clothing Name Role Phone Savage Fonseca MD Primary Care Provider Allergies Active Allergy Reactions Criticality Noted Date [...] Encounters Date Type Department Care Team Description 04/09/2025 External Device Data STL ABSTRACTION Provider, Abstract 03/26/2025 External Device Data STL ABSTRACTION Provider, Abstract 02/05/2025 External Device Data STL ABSTRACTION Provider, Abstract [...] Sign Reading Time Taken Comments Blood Pressure 124/77 10/04/2024 11:54 AM CHOIR DIRECTOR Pulse 62 10/04/2024 11:54 AM CHOIR DIRECTOR Temperature 35.9 C (96.7 F) 10/04/2024 11:54 AM CHOIR DIRECTOR Respiratory Rate 15 10/04/2024 11:54 AM CHOIR DIRECTOR Oxygen Saturation 96% 10/04/2024 11:54 AM CHOIR DIRECTOR Inhaled Oxygen Concentration - - Weight 71.7 kg (158 lb) 10/04/2024 11:54 AM CHOIR DIRECTOR Height 177.8 cm (5' 10) 05/24/2022 2:09 PM CDT Body Mass Index 22.67 05/24/2022 2:09 PM CDT Plan of Treatment Upcoming Encounters Date Type Department Care Team (Late st Contact Info) Description 07/04/2025 10:00 AM CHOIR DIRECTOR Office Visit [facility] Oncology and Hematology [facility] [address] [facility] [address] [place] [address] William Gambino MD [address] [facility] [address] [place] [address] Health Maintenance Due Date Last Done Comments DTAP/TDAP/TD VACCINES (1 - Tdap) 1972 COLORECTAL SCREENING 1998 Colorectal Cancer Screening 1998 FIT-DNA Q 3 years 1998 FIT/FOBT Q 1 year 1998 Flex Sig/CT Colonography Q 5 years 1998 PNEUMOCOCCAL VACCINE 50+ YEARS (1 of 1 - PCV) 06/03/20 03 ZOSTER VACCINE (1 of 2) 2003 Abdominal Aortic Aneurysm (AAA) Screening 2018 INFLUENZA VACCINE (#1) 2025 RSV VACCINE (60+ or ) (1 - 1-dose 75+ series) 2028 Insurance Care Teams Salesperson [employer] Relationship Specialty Start Date End Date Savage Fonseca MD [address] [place] [address] PCP - General Internal Medicine 12/31/21
--- OUTSIDE RECORDS SUMMARY | 2025-04-25 08:06 | XMS_ITS | Patient Health Record ---
Author Organization [facility] Address [address] [place], [place] [address] Care Team Providers Care Parts Room Associate Name Role Phone ZAIDA BRANCH Unavailable [phone] Savage Fonseca Unavailable Unavailable Reason For Referral No Information Medications Medication SIG (Take, Route, Frequency, Duration) Notes Start Date End Date Status Nabumetone 500 MG Oral Tablet ORAL nabumetone 500 MG Oral TabletOriginal Medicationnabumetone 500 MG Oral Tablet *Reorder from [employer] for eRx and Interaction Alerts* 11/24/2015 Active Plan Of Treatment No Information Insurance Providers Payer Name Payer Address Payer Phone Subscriber Number Group Number Insured Name Patient Relationship to Insured Coverage Start Date [facility]age End Date [facility] [address] [place], [place] [phone] [id number] ADRIANNA RIVAS Spouse - patient is the spouse of the insured
--- OUTSIDE RECORDS SUMMARY | 2025-04-25 08:06 | XMS_ITS | Clinical Summary ---
Author Organization [facility] [address] Address [address] [place] [address] Care Team Providers Care Assistant Professor Of German Name Role Phone Savage Fonseca MD Primary Care Provider [phone] Allergies Active Allergy Reactions Criticality Noted Date [...] Date Diagnosed Date Hyperlipidemia Cardiomyopathy Essential hypertension Encounters Date Type Department Care Team Description 03/04/2025 12:45 PM CDT Office Visit [facility] Cardiology [address] [place] [address] Bridger Hartman MD Essential hypertension (Primary Dx); Mixed hyperlipidemia; Cardiomyopathy, unspecified type (HCC) from Last 3 Months Surgical History Surgery Date Site/Laterality Comments KNEE SURGERY CRANIOTOMY Medical History Medical History Date Comments Cardiomyopathy Hyperlipidemia Seizure disorder (HCC) Leukopenia Brain abscess Sleep apnea Family History Medical History Relation Name Comments Cancer Father Cancer Mother Relation Name Status Comments Father Mother Social History Tobacco Use Types Packs/Day Years Used Date Smoking Tobacco: Former Smokeless Tobacco: Never Tobacco Cessation:Counseling Given: Not Answered Sex and Gender Information Value Date Recorded Sex Assigned at Not on file Legal Sex Male 12:41 PM GLASS WOOL BLANKET MACHINE FEEDER Gender Identity Not on file Sexual Orientation Not on file Obstetrics History Last Filed Vital Signs Vital Sign Reading Time Taken Comments Blood Pressure 150/90 03/04/2025 12:46 PM CDT Pulse 68 03/04/2025 12:46 PM CDT Temperature 36.3 C (97.4 F) 07/23/2014 1:54 PM GLASS WOOL BLANKET MACHINE FEEDER Respiratory Rate 16 03/04/2025 12:46 PM CDT Oxygen Saturation 97% 03/04/2025 12:46 PM CDT Inhaled Oxygen Concentration - - Weight 69.9 kg (154 lb) 03/04/2025 12:46 PM CDT Height 177.8 cm (5' 10) 03/04/2025 12:46 PM CDT Body Mass Index 22.1 03/04/2025 12:46 PM CDT Plan of Treatment Health Maintenance Due Date Last Done Comments Colon Cancer Screening-Colonoscopy 1953 Depression Screening 1953 Fall Risk Assessment 1953 Hepatitis C Screening 1953 Hepatitis B Screening 1971 Abdominal Aortic Aneurysm (A AA) Screen 2018 Well Visit 65+ 2018 Zoster Vaccine (3 of 3) 01/05/2022 11/10/2021, 11/03 Covid-19 Vaccine ( season) 2024 07/06/2021, 10/31/2020, 10/10/2020 Influenza Vaccine (#1) 2025 , 06/11/2019, 05/31/2019 DTaP/Tdap/Td Vaccine (2 - Td or Tdap) 02/19/203108/2020 Pneumococcal vaccine 65+ Completed 06/10/2020, 05/22 Procedures Procedure Name Priority Date/Time Associated Diagnosis Comments POCT LIPID PANEL Routine 03/04/2025 12:3 9 PM CDT Mixed hyperlipidemia from Last 3 Months Results * (ABNORMAL) POCT lipid panel (03/04/2025 12:39 PM CDT) Cholesterol, POC 189 <200 MG/DL HDL, POC 94 >=40 mg/dL Triglycerides, POC 229(A) <=149 mg/dL LDL Cholesterol POC 50 <=129 mg/dL Chol/HDL Ratio, POC 0.5 NONE Non-HDL Cholesterol, POC 96 NONE mg/dL Cholesterol Total, POC 189 30 - 199 mg/dL Capillary blood 03/04/2025 1 2:39 PM CDT us Bridger Hartman MD POINT OF CARE TEST O RDERABLES Final Result from Last 3 Months Insurance [facility] [id number] Care Teams Assistant Professor Of German Relationship Specialty Start Date End Date Savage Fonseca MD PCP - General Internal Medicine 11/13/21
[2025-04-25 08:15] LABS: Add Urine Microscopic? NO; Appearance Urine Clear (Clear); Glucose Urine UA Negative (Negative); Hematocrit 40.8 % (37.0-46.0); Hemoglobin 13.2 g/dL (12.4-15.3); Leukocyte Esterase Ur Negative (Negative); Mean Corpuscular HGB Conc 32.4 g/dL (32-36); Mean Corpuscular Hemoglobin 30.3 pg (27.0-31.0); Mean Corpuscular Volume 93.6 fL (78.0-102.0); Nitrate Urine Negative (Negative); Platelet Count Result 205 K/mm3 (150-420); Red Blood Count 4.36 M/mm3 (4.70-6.10); Specific Grav Ur 1.015 (1.010-1.020); White Blood Count 3.5 K/mm3 (4.8-10.8)
[2025-04-25 08:46] LABS: Alanine Aminotransferase 26 U/L (6-50); Albumin Level 4.5 g/dL (3.5-5.1); Alkaline Phosphatase 62 U/L (38-126); Anion Gap 10 mmol/L (4-12); Aspartate Amino Transferase 28 U/L (17-59); Bilirubin,Total 0.6 mg/dL (0.2-1.3); Blood Urea Nitrogen 24 mg/dL (9-20); Calcium 9.8 mg/dL (8.4-10.2); Carbon Dioxide 27 mmol/L (22-30); Chloride 103 mmol/L (98-107); Cholesterol 205 mg/dL (0-200); Estimated Glomerular Filt Rate > 60; Glucose 90 mg/dL (65-110); Osmolality Calculated 294 mOsm/kg (285-295); Potassium 5.5 mmol/L (3.4-5.0); Sodium 140 mmol/L (137-145); Total Protein 7.3 g/dL (6.3-8.2); Triglycerides 110 mg/dL (<150)
[2025-04-25 08:50] LABS: Total Cells Counted 100
[2025-04-25 08:51] LABS: Band Neutrophils Percent 0 % (0-6); Basophils Absolute Manual 0.03 K/mm3 (0-0.1); Basophils Percent Manual 1 % (0-1); Eosinophils Absolute Manual 0.17 K/mm3 (0.02-0.50); Eosinophils Percent Manual 5 % (1-6); Lymphocytes Absolute Manual 1.50 K/mm3 (1.1-4.5); Lymphocytes Percent Manual 43 % (18-44); Monocytes Absolute Manual 0.42 K/mm3 (0.1-0.90); Monocytes Percent Manual 12 % (3-9); Neutrophils Absolute Manual 1.36 K/mm3 (1.3-6.7); Neutrophils Percent Manual 39 % (46-73)
[2025-04-25 08:52] LABS: HDL Direct > 110 mg/dL
[2025-04-25 09:17] LABS: Prostate Specific Antigen 1.7 ng/mL (< OR = 4.0); Thyroid Stimulating Hormone 2.070 uIU/mL (0.465-4.680)
== END 2025-04-25 07:57 | disposition home or self-care (01) ==
LOC: CHSLAB 08:00
PROVIDERS: PCP Internal Medicine; Visit Provider Internal Medicine
DX: G40.909 Epilepsy, unspecified, not intractable, without status epilepticus (principal); E78.5 Hyperlipidemia, unspecified
CPT/HCPCS: 36415; 80053; 80061; 80177; 81003; 84153; 84443; 85025; G0103